=== PATIENT | female | born 1935 | race Caucasian/White ===

== ENCOUNTER 2016-04-21 20:10 | Emergency (ER) | payer OTHER, MEDICARE ==
[2016-04-21 20:21] VITALS: RESP 20; TEMP 97.4
--- NOTE | 2016-04-21 20:34 | PDOC ---
Upper Extremity Problem HPI - General Chief Complaint: Upper Extremity Problem/Injury Stated Complaint: Right Upper Arm Injury Date Seen by Provider: 04/21/16 Time Seen by Provider: 20:28 Source: POSITIVE: Patient, Spouse Exam Limitations: POSITIVE: No limitations Nurse's Notes Reviewed & Considered: Yes - History of Present Illness Initial Comments: Patient comes in today with right upper extremity pain. One week ago patient while using her walker. She hit her right inner upper arm on the handle resulting in significant bruising. She comes in now because of increasing pain and hard knot in her biceps. She denies any fever or chills or sweats, nausea vomiting or diarrhea, no hematuria or dysuria. Body Location Affected: REPORTS: Upper Extremity (R) Timing: REPORTS: Abrupt Duration: >1 week Severity: Moderate Quality: REPORTS: "Pain" Recent Injury: REPORTS: Yes Context of Injury: REPORTS: Fall, Direct Blow Location at Time of Onset: REPORTS: Home Modifying Factors: REPORTS: Movement, Rest Similar Symptoms Previously: No Recent Care Received: Denies Any Prior Injuries Related to Current Complaint?: No - Patient Home Medications Home Medications: Home Medications Naproxen Sodium [Aleve] 2 cap PO QAM cap 06/24/15 Cholecalciferol (Vitamin D3) [Vitamin D3] 1 cap PO QD cap 10/08/15 Gluc Kamara/MSM/Magnesium/Vit C [Glucosamine Complex-MSM Cap] 1 each PO DAILY cap 10/08/15 Vit A/C/E AC/Znox/Cupric Oxide [Eye Vitamin-Minerals Tablet] 1 each PO DAILY tab 10/08/15 Donepezil HCl [Aricept] 1 tab PO QHS #90 tab 10/24/15 Clobetasol Propionate 1 applic TOPICAL QHS #1 tube 11/06/15 Cyanocobalamin (Vitamin B-12) [Vitamin B12] 2,500 mcg PO DAILY tab 11/22/15 Vitamin B Complex 1 each PO QD cap 11/22/15 Lisinopril 1 tab ORAL QD #90 tab 12/12/15 - Patient Allergies Allergies/Adverse Reactions: Allergies Allergy/AdvReac Type Severity Reaction Status Date / Time alendronate sodium Allergy Intermediate NOT Verified 04/21/16 20:15 [From Fosamax] APPLICABLE diclofenac Allergy Intermediate NAUSEA Verified 04/21/16 20:15 doxycycline [Doxycycline] Allergy Intermediate RASH Verified 04/21/16 20:15 Akcuuqy-Bso-Dye Reductase Allergy Intermediate NOT Verified 04/21/16 20:15 Inhibitor APPLICABLE Past Medical History - heen HEENT History: Macular Degeneration, Cataracts Cardiovascular History: Hypertension Respiratory History: Denies History Gastrointestinal History: Denies History Genitourinary History: Denies History Endocrine History: Hypothyroidism Musculoskeletal History: Arthritis, Osteoporosis, Back Pain, Joint Pain, Osteoarthritis Prosthesis or Implant: Yes (BILAT KNEE/ RIGHT SHOULDER/LEFT HIP) Additional Musculoskeletal History: MULTIPLE BACK SX Neurological History: Dementia Blood Disorders: Denies History Psychiatric History: Depression, Anxiety Disorders History of Sexually Transmitted Diseases: No Female Reproductive History: Denies History Obstetrical History: Denies History Cancer History: Denies History In Past Year Been Physically Harmed or Verbally Threatened: No History of MDRO: No History of Other Communicable Diseases: No Tobacco Use: Never Smoker Alcohol Use: Rarely Substance Use Type: None Previous Surgical History: Yes Type / Date of Surgery: COLONOSCOPY/ HYST/ LEFT MID FOOT FUSION/ ELISEO FUNDOPLICATION/ THORACOLUMBAR FUSION/ TONSILLECTOMY/ BILATRAL TKA/ RIGHT TSA Anesthesia Reactions: No Malignant Hyperthermia: No Significant Family History: Heart disease, Hypertension ROS - Limitations ROS Limitations: No Limitations Constitution: REPORTS: Denies Symptoms Cardiovascular: REPORTS: Denies Cardiac Symptoms Respiratory: REPORTS: Denies Resp Symptoms Neurological: REPORTS: Denies Neuro Symptoms Gastrointestinal: REPORTS: Denies GI Symptoms Endocrine: REPORTS: Denies Symptoms Musculoskeletal: REPORTS: Other (Upper extremity bruising, swelling, and tenderness.) Genitourinary: REPORTS: Denies Symptoms Eyes: REPORTS: Denies Symptoms ENT: REPORTS: Denies Symptoms Skin: REPORTS: Denies Skin Symptoms Lympathic: REPORTS: Denies Lympathic Symptoms Immunologic: POSITIVE: Denies Symptoms Psychiatric: POSITIVE: Denies Psych Symptoms Upper Extremity Problem Exam - General Appearance General Appearance: POSITIVE: Alert, Cooperative, No Acute Distress - Upper Extremity Upper Extremity: POSITIVE: Normal ROM, Joints Normal, Tenderness (Right biceps) , Swelling Vascular: POSITIVE: No Vascular Compromise, Full Pulses - Skin Skin: POSITIVE: Other (Bruising right upper arm.) - Neuro / Psych Peripheral Neuro Exam: POSITIVE: Sensation Normal, Motor Normal Central Neuro Exam: POSITIVE: Oriented to Person, Oriented to Place, Oriented to Time - HEENT HEENT: POSITIVE: Head Inspection Nml, Eyes Inspection Nml, Ears Inspection Nml, Nose Inspection Nml, PERRL, EOMI - Neck/Back Neck / Back: POSITIVE: Normal Inspection - Respiratory / CVS Respiratory / CVS: POSITIVE: No Respiratory Distress, Breath Sounds Normal, Regular Rate & Rhythm, Heart Sounds Normal Peripheral Pulses: Radial (R): 2+, Radial (L): 2+ - Abdomen Abdomen: Soft: (All Quadrants), Normal Bowel Sounds: (All Quadrants), Denies Tenderness: (All Quadrants) Upper Ext Problem Progress - Results Reviewed by me Xrays/CTs/US Reviewed by me: Yes Discussed with Radiologist: No Lab Results Reviewed: Yes Lab Results:: Laboratory Results 04/21/16 Range/Units 20:41 WBC 6.47 (4.8-10.8) 10^3/uL RBC 4.80 (4.20-5.40) 10^6/uL Hgb 13.8 (12.0-16.0) g/dL Hct 41.6 (37.0-47.0) % MCV 86.7 (81-99) FL MCH 28.8 (27-31) PG MCHC 33.2 (33-37) g/dL RDW Std Deviation 46.5 (39-50) fL RDW Coeff of Malcolm 14.9 H (11.5-14.5) % Plt Count 324 (140-350) 10*3/uL MPV 8.5 (7.4-12.2) FL Immature Gran % (Auto) 0.3 (0-5) % Neut % (Auto) 55.7 (50-80) % Lymph % (Auto) 30.8 (10-50) % Bradley % (Auto) 9.6 (5-15) % Eos % (Auto) 3.1 (0-8) % Baso % (Auto) 0.5 (0-1) % Immature Gran # (Auto) 0.02 10*3/UL Neut # (Auto) 3.61 10*3/UL Lymph # (Auto) 1.99 10*3/uL Bradley # (Auto) 0.62 (0.3-0.8) 10*3/UL Eos # (Auto) 0.20 10*3/UL Baso # (Auto) 0.03 10*3/UL WBC Morphology Comment Normal morphology (NORM) Plt Morphology Comment Normal morphology (NORM) RBC Morph Comment Normal morphology (NORM) PT 10.7 (9.7-11.4) secs INR 1.04 (0.00-5.90) N/A - Patient's Progress Pain Medication Addressed: POSITIVE: Not Applicable Re-Examine Time:: 21:35 Status: POSITIVE: Improved - Consult Counseled: POSITIVE: Patient, Family, RE: Lab Results, RE: Radiology Results, RE : DX Patient Care Time - Estimated PCT Patient Care Time (In Minutes): 20 Vital Signs - Recent Vital Signs Vital Signs: Vital Signs (Last 8 hours) Temp Pulse Resp BP Pulse Ox 04/21/16 20:10 97.4 F 85 20 150/98 95 - VS Reviewed Vital Signs Reviewed: Yes Discharge Clinical Impression: Hematoma Discharge Disposition: Discharged to Home Condition: Stable Patient Instructions Given at Discharge: Contusion in Adults (ED)
[2016-04-21 20:46] LABS: BASOPHILS # (AUTO) 0.03 10*3/UL; BASOPHILS % (AUTO) 0.5 % (0-1); EOSINOPHILS % (AUTO) 3.1 % (0-8); HEMATOCRIT 41.6 % (37.0-47.0); HEMOGLOBIN 13.8 g/dL (12.0-16.0); IMM GRAN % (AUTO) 0.3 % (0-5); IMM GRAN# (AUTO) 0.02 10*3/UL; LYMPHOCYTES # (AUTO) 1.99 10*3/uL; LYMPHOCYTES % (AUTO) 30.8 % (10-50); MEAN CORPUSCULAR HEMOGLOBIN 28.8 PG (27-31); MEAN CORPUSCULAR HGB CONC 33.2 g/dL (33-37); MEAN PLATELET VOLUME 8.5 FL (7.4-12.2); MONOCYTES # (AUTO) 0.62 10*3/UL (0.3-0.8); MONOCYTES % (AUTO) 9.6 % (5-15); NEUTROPHILS # (AUTO) 3.61 10*3/UL; NEUTROPHILS % (AUTO) 55.7 % (50-80); RDW COEFFICIENT OF VARIATION 14.9 % (11.5-14.5); WHITE BLOOD COUNT 6.47 10^3/uL (4.8-10.8)
[2016-04-21 20:47] LABS: PLATELET MORPHOLOGY COMMENT NORMAL MORPHOLOGY (NORM)
[2016-04-21 20:53] LABS: PROTHROMBIN TIME 10.7 secs (9.7-11.4)
--- NOTE | 2016-04-21 21:46 | DI ---
HISTORY: Bleeding from right bicep. COMPARISON: None available. TECHNIQUE: Multiple grayscale and color Doppler sonographic images were obtained through the region of interest. FINDINGS: Examination demonstrates a large visible hematoma. Sonographic images reveal a heterogene ous encapsulated mass without any internal flow. This measures 5.1 x 4.0 x 2.6 cm within the intramu scular portion of the right bicep. IMPRESSION: 1. Large encapsulated heterogeneous solid mass in the right upper extremity is consistent with a larg e intramuscular hematoma. NOTIFICATION: The above findings were phoned to Ade Tenorio in the ER Department on 04/22/2016 at 12 :08 AM EST. NOTE: The interpreting Radiologist was not present at the time of ultrasound interrogation.
--- NOTE | 2016-04-22 20:00 | DI ---
RIGHT HUMERUS, 04/21/2016 8:25 PM: Clinical History: Injury. The patient fell. Pain. Previous Exam: None at this facility. 3 views of the right shoulder and 2 views of the right humerus are submitted. The shoulder exam was i ntradermally performed, but the patient was not charged for this exam. The patient is status post tot al right reverse shoulder replacement. The prosthetic device articulates normally. There is no fractu re of the humerus and there is no evidence of loosening of the prosthetic device. There is heterotopi c bone formation along the inferior margin of the anchor point for the metallic prosthesis in the sca pula. The visualized portions of the right lung show no infiltrate or mass. Readin. Status post total right reverse shoulder replacement. The prosthetic device articulates normally. 2. There is no evidence of a fracture of the humerus or of loosening of the prosthetic device.
== END 2016-04-21 21:40 | disposition home or self-care (01) ==
LOC: ER 20:10
DX: S40.021A Contusion of right upper arm, initial encounter (principal); W01.198A Fall on same level from slipping, tripping and stumbling with subsequent striking against other object, initial encounter
CPT/HCPCS: 73060; 76882; 85025; 85610; 99283

== ENCOUNTER → 2016-05-08 | Outpatient (CLI) | payer OTHER, MEDICARE | LOC: MMPC 09:00 | PROVIDERS: ATTEND Student in an Organized Health Care Education/Training Program | DX: H10.31 Unspecified acute conjunctivitis, right eye (principal) | CPT/HCPCS: 99212 ==

== ENCOUNTER 2017-12-13 09:55 | Inpatient (IN) ==
[2017-12-13 10:40] LABS: BASOPHILS # (AUTO) 0.02 10*3/UL; BASOPHILS % (AUTO) 0.1 % (0-1); EOSINOPHILS # (AUTO) 0.17 10*3/UL; EOSINOPHILS % (AUTO) 0.8 % (0-8); Hematocrit [HCT] 35.9 % (37.0-47.0); Hemoglobin [HGB] 11.7 g/dL (12.0-16.0); LYMPHOCYTES # (AUTO) 1.93 10*3/uL; MEAN CORPUSCULAR HEMOGLOBIN 27.7 PG (27-31); MEAN CORPUSCULAR HGB CONC 32.6 g/dL (33-37); MEAN CORPUSCULAR VOLUME 84.9 FL (81-99); MEAN PLATELET VOLUME 9.2 FL (7.4-12.2); MONOCYTES # (AUTO) 1.03 10*3/UL (0.3-0.8); MONOCYTES % (AUTO) 5.1 % (5-15); NEUTROPHILS # (AUTO) 16.85 10*3/UL; NEUTROPHILS % (AUTO) 83.6 % (50-80); RED BLOOD COUNT 4.23 10^6/uL (4.20-5.40)
[2017-12-13 10:48] LABS: BLOOD UREA NITROGEN 61 mg/dL (7-22)
[2017-12-13 11:05] LABS: PLATELET MORPHOLOGY COMMENT NORMAL MORPHOLOGY (NORM); RBC MORPHOLOGY COMMENT SEE COMMENTS (NORM); WBC MORPHOLOGY COMMENT NORMAL MORPHOLOGY (NORM)
[2017-12-13] MEDS ORDERED: Sodium Chloride 0.9% 500 ML PRIMARY IV ONE (11:37)
[2017-12-13] MEDS ORDERED: Sodium Chloride 0.9% 1,000 ML PRIMARY IV ONE (12:06)
--- NOTE | 2017-12-13 13:07 | DI ---
AP /LATERAL CHEST, 12/13/2017 11:24 AM : Clinical History: Chills/ rigor. Previous Exam: None at this facility. There is no acute soft tissue or bony abnormality. The patient is status post posterior fusions at th e thoracolumbar junction and status post right reverse shoulder replacement. There are multiple old c ompression fractures in the midthoracic spine. There is cardiomegaly with a prominent left ventricula r contour suggesting either a left ventricular aneurysm or severe hypertension or severe aortic insuf ficiency. Coronary artery calcifications are present in the LAD. Lungs are clear. Mediastinal structu res are normal. There are no pulmonary nodules. Readin. There is no acute infiltrate or effusion. 2. Cardiomegaly with prominence of the left ventricular contour. This prominence is either secondary to a left ventricular aneurysm, severe hypertension, or severe aortic insufficiency. Calcifications are present in the LAD. There is no CHF. 3. Status post multiple fusions in the thoracolumbar junction with multiple old osteoporotic chanel sugey fractures. Status post total reversed right shoulder replacement.
[2017-12-13] MEDS ORDERED: Ertapenem Inj 1 GM in Sodium Chloride 0.9% 100 ML IV ONE (13:49)
[2017-12-13] MEDS ORDERED: LIDOCAINE HCL 2 % 10 ML JELLY URO-JECT TOPICAL ONE ×2 (13:52→14:11)
[2017-12-13 14:11] LABS: BILIRUBIN,URINE SMALL (NEG); CLARITY,URINE CLEAR (CLEAR); COLOR,URINE YELLOW (Y); GLUCOSE, URINE (UA) NEGATIVE (NEG); OCCULT BLOOD,URINE NEGATIVE (NEG); PH,URINE 5.5 (5.0-8.5); PROTEIN,URINE 100 mg/dl (NEG); UROBILINOGEN,URINE 0.2 EU/dL (0.2)
[2017-12-13 14:19] LABS: BACTERIA,URINE RARE; RBC,URINE 0-1 /hpf; RENAL EPITHELIAL CELLS,URINE MODERATE; SQUAMOUS EPITHELIAL CELL,UR FEW; URINE CASTS MODERATE; URINE SAMPLE TYPE CATH SPECIMEN
[2017-12-13] MEDS ORDERED: ONDANSETRON 4 MG/2 ML VIAL IVP ONE (14:40)
[2017-12-13] MEDS ORDERED: ONDANSETRON 4 MG/2 ML VIAL ONE (14:43)
--- NOTE | 2017-12-13 15:15 | PDOC ---
HPI - History of Present Illness History of Present Illness: This very nice 82-year-old female presented to the ER with diarrhea which she had for 2 weeks as well as generalized weakness she states that she has a 5-6 a day. No vomiting but some nausea CT scan without contrast revealed no abnormalities in her abdomen and pelvis. Colonoscopy revealed some diverticula. No blood thinners and was mildly heme positive in the ER. Past Medical History Medical History: Dementia, hypertension Tobacco Use: Never Smoker In the Past 12 Months, Have Used or Abuse Any of the Following Substance: None Medication / Allergies Home Medications: Home Medications 3 Medication Instructions Recorded Confirmed Type Vitamin B Complex 1 ea PO QD cap 11/22/15 12/13/17 History cholecalciferol (vitamin D3) 1,000 1,000 unit PO QDAY #90 cap 08/27/17 12/13/17 Rx unit capsule escitalopram 5 mg tablet 5 mg PO QDAY #90 tab 08/27/17 12/13/17 Rx ibuprofen 200 mg tablet 200 mg PO QHS PRN tab 08/27/17 12/13/17 History lisinopril 40 mg tablet 40 mg PO QDAY #90 tab 08/27/17 12/13/17 Rx memantine 5 mg tablet 5 mg PO QDAY #30 tab 08/27/17 12/13/17 Rx vitamins A,C,I-hzcp-zcicce 14,320 1 cap PO DAILY 08/27/17 12/13/17 History unit-226 mg-200 unit capsule Allergies/Adverse Reactions: Allergies 3 Allergy/AdvReac Type Severity Reaction Status Date / Time alendronate sodium Allergy Intermediate NOT Verified 12/13/17 17:37 [From Fosamax] APPLICABLE diclofenac Allergy Intermediate NAUSEA Verified 12/13/17 17:37 doxycycline [Doxycycline] Allergy Intermediate RASH Verified 12/13/17 17:37 Fadquzg-Mti-Xjx Reductase Allergy Intermediate NOT Verified 12/13/17 17:37 Inhibitor APPLICABLE Review of Systems - Review of Systems All Systems: Reviewed & No Additional Complaints Except as Stated - Respiratory Respiratory: DENIES: Negative System Review, Cough, Sputum, Dyspnea At Rest, Dyspnea with Exertion, Pleuritic Pain, Hemoptysis, Wheezing, Other, See HPI - Cardiovascular Cardiovascular: DENIES: Negative System Review, Chest Pain, Edema, Syncope, Palpitations, Orthopnea, Paroxysmal Nocturnal Dyspnea, Other, See HPI - Gastrointestinal Gastrointestinal / Abdominal: REPORTS: Nausea, Diarrhea Exam - Vitals Vital Signs: Vital Signs Temperature 96 F Pulse Rate [Pulse Oximeter] 107 Respiratory Rate 18 Blood Pressure [Left Arm] 125/53 Pulse Ox 95 Oxygen Delivery Method Room Air Height 5 ft Weight 180 lb - General General Appearance: No Acute Distress, Mild Distress, Disheveled - Head Head Exam: Normal Inspection, Normocephalic, Atraumatic - Eye Eye Exam: POSITIVE: Normal Appearance, PERRL, EOMI, No Scleral Icterus - Respiratory Respiratory Exam: POSITIVE: Clear to Auscultation - Bilaterally, Breathing Non Labored, Normal To Percussion, Normal to Percussion and Palpation - Cardiovascular Cardiovascular Exam: POSITIVE: RRR, No Murmur, No Clicks, No Gallops, No Rubs, PMI Non-Displaced - GI/Abdominal GI/Abdominal Exam: POSITIVE: Normal Bowel Sounds, Non Distended, Soft, No Masses , No Hepatomegaly, No Splenomegaly, No Organomegaly Additional GI/Abdominal Exam Details: Mild tenderness to the right lower quadrant pain no guarding or rebound - Extremities Extremities Exam: POSITIVE: No Clubbing Present, No Edema Present Results - Labs CBC and BMP: 12/13/17 19:30 12/13/17 10:20 Assessment and Plan - Patient Problems (1) CAYDEN (acute kidney injury) Current Visit: Yes Status: Acute Code(s): N17.9 - Acute kidney failure, unspecified (2) Diarrhea Current Visit: Yes Status: Acute Code(s): R19.7 - Diarrhea, unspecified (3) Leukocytosis Current Visit: Yes Status: Acute Code(s): D72.829 - Elevated white blood cell count, unspecified Qualifiers: Leukocytosis type: unspecified Qualified Code(s): D72.829 - Elevated white blood cell count, unspecified (4) Weakness Current Visit: Yes Status: Acute Code(s): R53.1 - Weakness - Assessment / Plan Additional Assessment/Plan Details: #1 diarrhea 2 weeks duration etiology unknown stool cultures were sent C. difficile was negative patient received [address] abdomen and pelvis without contrast because of her renal insufficiency was unremarkable we will await for further studies so order a C-reactive protein and sedimentation rate likely Crohn's at this stage even though there is a by multiple. The literature CBC down to 17,000 tonight hemoglobin 10.7 hemodynamically stable #2 acute kidney injury most likely prerenal from the diabetes with the patient repeat labs
[2017-12-13] MEDS ORDERED: LIDOCAINE W/ SODIUM BICARB 0.5 ML SYR SUBD PRN (15:20)
--- NOTE | 2017-12-13 16:52 | PDOC ---
General Adult HPI - General Chief Complaint: GI Bleed / Rectal Pain Stated Complaint: passing blood rectally Date Seen by Provider: 12/13/17 Time Seen by Provider: 10:40 - History of Present Illness Initial Comment: This is a very nice 82-year-old woman who presented to the emergency department with chief complaint of having blood in her stool. After further questioning and pressing she actually has diarrhea now for couple days is feeling extremely weak wiped out also has some chills and rigors and in general is very weak and just doing poorly. She denies any fever per se or shortness of breath or dysuria or flank pain. She denies any vomiting But does have a little bit of nausea. She has had problems with GI bleeding in the past and recently had a colonoscopy that showed some diverticula and a polyp that was benign. She does not take any blood thinners. She does not take much for medications actually she is typically fairly robust and healthy. Have you received a tetanus shot in the past 10 years?: Yes - Patient Home Medications Home Medications: Home Medications Vitamin B Complex 1 ea PO QD cap 11/22/15 cholecalciferol (vitamin D3) 1,000 unit capsule 1,000 unit PO QDAY #90 cap 08/27 escitalopram 5 mg tablet 5 mg PO QDAY #90 tab 08/27/17 ibuprofen 200 mg tablet 200 mg PO QHS PRN tab 08/27/17 lisinopril 40 mg tablet 40 mg PO QDAY #90 tab 08/27/17 memantine 5 mg tablet 5 mg PO QDAY #30 tab 08/27/17 vitamins A,C,Y-tkqg-vyixgc 14,320 unit-226 mg-200 unit capsule 1 cap PO DAILY 08/27/17 - Patient Allergies Allergies/Adverse Reactions: Allergies 3 Allergy/AdvReac Type Severity Reaction Status Date / Time alendronate sodium Allergy Intermediate NOT Verified 12/13/17 10:07 [From Fosamax] APPLICABLE diclofenac Allergy Intermediate NAUSEA Verified 12/13/17 10:07 doxycycline [Doxycycline] Allergy Intermediate RASH Verified 12/13/17 10:07 Spktblp-Eyo-Xey Reductase Allergy Intermediate NOT Verified 12/13/17 10:07 Inhibitor APPLICABLE Past Medical History - heen HEENT History: Macular Degeneration, Cataracts Cardiovascular History: Hypertension Respiratory History: Denies History Gastrointestinal History: Other (please comment) Additional Gastrointestinal History: RECTAL BLEEDING/HEMORRHOID. DIARRHEA. DIVERTICULOSIS. COLON POLYP Genitourinary History: Incontinence Endocrine History: Hypothyroidism Musculoskeletal History: Arthritis, Osteoporosis, Back Pain, Joint Pain, Osteoarthritis Prosthesis or Implant: Yes (BILAT KNEE/ RIGHT SHOULDER/LEFT HIP/SPINAL FUSION) Additional Musculoskeletal History: CHRONIC NECK AND BACK PAIN. OSTEOMYELITIS OF ANKLE/FOOT. ACQUIRED HAMMER TOE. THORACIC SPINAL STENOSIS. OBESITY. RESTLESS LEGS Neurological History: Other (please comment) Additional Neurological History: MILD COGNITIVE IMPAIRMENT WITH MEMORY LOSS Blood Disorders: Denies History Psychiatric History: Depression, Anxiety Disorders History of Sexually Transmitted Diseases: No Female Reproductive History: Hysterectomy Cancer History: Denies History In Past Year Been Physically Harmed or Verbally Threatened: No History of MDRO: No History of Other Communicable Diseases: No Tobacco Use: Never Smoker Alcohol Use: Rarely In the Past 12 Months, Have Used or Abuse Any Substance: None Previous Surgical History: Yes Type / Date of Surgery: COLONOSCOPY/ HYST/ LEFT MID FOOT FUSION/ ELISEO FUNDOPLICATION/ THORACOLUMBAR FUSION/ TONSILLECTOMY/ BILATRAL TKA/ RIGHT TSA Anesthesia Reactions: No Malignant Hyperthermia: No Significant Family History: Heart disease, Hypertension Past Medical History Reviewed: Reviewed - No Changes ROS Cardiovascular: REPORTS: Denies Cardiac Symptoms Neurological: REPORTS: Denies Neuro Symptoms Endocrine: REPORTS: Denies Symptoms Eyes: REPORTS: Denies Symptoms General Adult Exam - General Appearance General Appearance: POSITIVE: Alert, Cooperative - HEENT HEENT: POSITIVE: Head Inspection Nml - Neck Neck: POSITIVE: Normal Inspection - Respiratory Respiratory: POSITIVE: No Respiratory Distress, Breath Sounds Normal - Cardiovascular Cardiovascular: POSITIVE: Regular Rate & Rhythm - Abdomen Additional Abdominal Details: Abdomen has some mild to moderate vague diffuse tenderness without rebound or guarding bowel tones are normal to hyperactive. - Rectal Rectal: POSITIVE: Heme Positive Stool, Other (Loose watery stool in the rectal vault) - Back Back: POSITIVE: Normal Inspection. NEGATIVE: CVA Tenderness - Skin Skin: POSITIVE: Normal Color, Warm - Extremities Additional Extremities Details: No significant lower extremity edema - Neurological / Psychological Neurological: POSITIVE: Affect Apporpriate, Oriented X3 General Adult Progress - Results Reviewed by me Xrays/CTs/US Reviewed by me: Yes Radiology Findings: Cardiomegaly otherwise benign Lab Results Reviewed by Me: Yes Lab Results:: Laboratory Results 3 12/13/17 12/13/17 12/13/17 10:20 10:20 10:20 WBC 20.17 H RBC 4.23 Hgb 11.7 L Hct 35.9 L MCV 84.9 MCH 27.7 MCHC 32.6 L RDW Std Deviation 50.0 RDW Coeff of Malcolm 16.3 H Plt Count 341 MPV 9.2 Immature Gran % (Auto) 0.8 Neut % (Auto) 83.6 H Lymph % (Auto) 9.[address] [place] % (Auto) 5.1 Eos % (Auto) 0.8 Baso % (Auto) 0.1 Immature Gran # (Auto) 0.17 Neut # (Auto) 16.85 Lymph # (Auto) 1.93 [place] # (Auto) 1.03 H Eos # (Auto) 0.17 Baso # (Auto) 0.02 WBC Morphology Comment Normal morphology Plt Morphology Comment Normal morphology RBC Morph Comment See comments Sodium 138 Potassium 4.3 Chloride 108 Carbon Dioxide 21 L Anion Gap 9 BUN 61 H Creatinine 1.9 H Estimated GFR Voice And Data Technician BUN/Creatinine Ratio 32.10 H Glucose 135 H Calculated Osmolality 304.0 H Lactic Acid Calcium 10.0 Total Bilirubin 0.5 AST 52 H ALT 30 Alkaline Phosphatase 111 Total Protein 7.2 Albumin 4.0 Globulin 3.2 Albumin/Globulin Ratio 1.20 L Ur Collection Type Urine Color Urine Clarity Urine pH Ur Specific [place] Urine Protein Urine Glucose (UA) Urine Ketones Urine Occult Blood Urine Nitrate Urine Bilirubin Urine Urobilinogen Ur Leukocyte Esterase Urine RBC Urine WBC Ur Squamous Epith Cells Ur Renal Epithelial Cell Urine Crystals Urine Bacteria Urine Casts Urine Mucus Urine Trichomonas Urine Yeast Ur Culture Indicated? Blood Type O POSITIVE Antibody Screen Negative 3 12/13/17 12/13/17 11:27 14:00 WBC RBC Hgb Hct MCV MCH MCHC RDW Std Deviation RDW Coeff of Malcolm Plt Count MPV Immature Gran % (Auto) Neut % (Auto) Lymph % (Auto) [place] % (Auto) Eos % (Auto) Baso % (Auto) Immature Gran # (Auto) Neut # (Auto) Lymph # (Auto) [place] # (Auto) Eos # (Auto) Baso # (Auto) WBC Morphology Comment Plt Morphology Comment RBC Morph Comment Sodium Potassium Chloride Carbon Dioxide Anion Gap BUN Creatinine Estimated GFR BUN/Creatinine Ratio Glucose Calculated Osmolality Lactic Acid 1.9 Calcium Total Bilirubin AST ALT Alkaline Phosphatase Total Protein Albumin Globulin Albumin/Globulin Ratio Ur Collection Type Cath specimen Urine Color Yellow Urine Clarity Clear Urine pH 5.5 Ur Specific [place] 1.020 Urine Protein 100 A Urine Glucose (UA) Negative Urine Ketones Trace A Urine Occult Blood Negative Urine Nitrate Negative Urine Bilirubin Small Urine Urobilinogen 0.2 Ur Leukocyte Esterase Small Urine RBC 0-1 Urine WBC 2-5 Ur Squamous Epith Cells Few Ur Renal Epithelial Cell Moderate Urine Crystals None Urine Bacteria Rare Urine Casts Moderate Urine Mucus Rare Urine Trichomonas None Urine Yeast None Ur Culture Indicated? Culture not set Blood Type Antibody Screen CBC and BMP: 12/13/17 10:20 12/13/17 10:20 - Patient's Progress MDM / ED Course: This very nice elderly woman has a significant acute kidney injury a significant leukocytosis likely colitis likely secondary to an infectious cause and is admitted to the hospital as an inpatient. I appreciate the discussion and acceptance of this patient by the hospitalist. She was given a dose of Invanz prior to leaving the emergency department we attempted to place a Galarza catheter but this was difficult nursing he is still working on it. There is a UA pending as well. She had a negative C. difficile and stool cultures are pending as well. Patient Care Time - Estimated PCT Patient Care Time (In Minutes): 50 Vital Signs - Recent Vital Signs Vital Signs: Vital Signs (Last 8 hours) Temp Pulse Resp BP Pulse Ox 12/13/17 10:36 96 F L 107 H 18 125/53 95 - VS Reviewed Vital Signs Reviewed: Yes Discharge Clinical Impression: CAYDEN (acute kidney injury), Colitis, Weakness, Diarrhea Leukocytosis Qualifiers: Leukocytosis type: unspecified Qualified Code(s): D72.829 - Elevated white blood cell count, unspecified Discharge Disposition: Admit to Inpatient Condition: Fair Date Decision to Admit to Inpatient: 12/13/17 Time Decision to Admit to Inpatient: 12:00
[2017-12-13] MEDS: Sodium Chloride 0.9% 1,000 ML PRIMARY IV SCH (17:23)
--- NOTE | 2017-12-13 17:35 | DI ---
CT ABDOMEN SCAN WITHOUT IV CONTRAST, 12/13/2017 4:07 PM : Clinical History: Diarrhea. Previous Exam: 03/08/2017. Scans are performed from the lower lung bases through the liver and kidneys without IV contrast. Sagi ttal and coronal reformatted images are generated. No oral or rectal contrast was ordered. The lung bases are clear. Calcifications are present in the right coronary artery. This patient proba wayne has dense calcifications in the mitral valve annulus. The liver is normal. The gallbladder is antonio ssly normal. Both adrenal glands and the pancreas are normal. The spleen is normal in overall appeara nce but does have punctate calcifications indicating patient probably has had prior exposure to eithe r TB or histoplasmosis. Both kidneys are normal in size, shape, and position. Bilateral cortical scott l cysts are present. There is no hydronephrosis or hydroureter. No right renal or ureteral calculi ar e present. Small punctate calcifications are present in lower pole calyces of the left kidney consist ent with nonobstructing 3-4 mm calculi. The left ureter is normal. There are no abnormal retrocrural or periaortic nodes. No ascites is present. READIN. Small 3-4 mm nonobstructing calculi are present in the lower pole calyces of the left kidney. Bot h ureters and the right kidney are normal. 2. The remainder of the examination is normal. Calcifications in the spleen are consistent with prev ious exposure to either TB or histoplasmosis. 3. Coronary artery disease manifested by calcifications in the right coronary artery. CT PELVIS SCAN WITHOUT IV CONTRAST, 12/13/2017 4:07 PM : Clinical History: See above. Previous Exam: 03/08/2017. Scans are performed from the inferior margin of the liver and kidneys to the symphysis pubis without IV contrast. The patient has had posterior fusions between T10 and S1 with laminectomies from T12 through L5. Ther e is a low-density fusiform shaped structure posterior to the spine in the subcutaneous fat over the midline incision for the spine surgery. This traverses the distance between T11 and S1 and measures a pproximately 60 x 60 x 150 mm. It is consistent with either a postoperative seroma or a postoperative pseudomeningocele. Scans through the lower abdomen and pelvis show no masses or abnormal fluid colle ctions. There is no adenopathy. The appendix is not visualized but there is no inflammatory mass eith er in the cecal tip or in the right lower quadrant. The small bowel, terminal ileum, and ileocecal va lve are normal. The colon is decompressed but normal. There are no hernias. The patient is status pos t hysterectomy and bilateral salpingo-oophorectomy. READIN. Normal CT pelvis scan without IV contrast. 2. Status post laminectomies from T12-L5 with posterior fusions between T10 and S1. There is a fusif orm low density area corresponding to the surgical incision for the back surgery consistent with a ps eudomeningocele or postoperative seroma.
[2017-12-13 19:35] LABS: Hematocrit [HCT] 31.6 % (37.0-47.0); Hemoglobin [HGB] 10.4 g/dL (12.0-16.0); MEAN CORPUSCULAR HEMOGLOBIN 27.7 PG (27-31); MEAN CORPUSCULAR HGB CONC 32.9 g/dL (33-37); MEAN PLATELET VOLUME 8.7 FL (7.4-12.2); RED BLOOD COUNT 3.76 10^6/uL (4.20-5.40)
[2017-12-14] MEDS: Sodium Chloride 0.9% 1,000 ML PRIMARY IV SCH ×3 (01:42→18:44)
[2017-12-14 05:02] LABS: BASOPHILS # (AUTO) 0.01 10*3/UL; BASOPHILS % (AUTO) 0.1 % (0-1); EOSINOPHILS # (AUTO) 0.02 10*3/UL; EOSINOPHILS % (AUTO) 0.2 % (0-8); Hematocrit [HCT] 29.6 % (37.0-47.0); Hemoglobin [HGB] 9.6 g/dL (12.0-16.0); LYMPHOCYTES # (AUTO) 1.16 10*3/uL; MEAN CORPUSCULAR HEMOGLOBIN 27.6 PG (27-31); MEAN CORPUSCULAR HGB CONC 32.4 g/dL (33-37); MEAN CORPUSCULAR VOLUME 85.1 FL (81-99); MEAN PLATELET VOLUME 9.7 FL (7.4-12.2); MONOCYTES # (AUTO) 0.78 10*3/UL (0.3-0.8); MONOCYTES % (AUTO) 5.9 % (5-15); NEUTROPHILS # (AUTO) 11.21 10*3/UL; NEUTROPHILS % (AUTO) 84.8 % (50-80); RED BLOOD COUNT 3.48 10^6/uL (4.20-5.40)
[2017-12-14 05:05] LABS: BLOOD UREA NITROGEN 58 mg/dL (7-22); BUN/CREATININE RATIO 44.61 (6-20)
[2017-12-14 05:12] LABS: PLATELET MORPHOLOGY COMMENT NORMAL MORPHOLOGY (NORM); RBC MORPHOLOGY COMMENT NORMAL MORPHOLOGY (NORM); WBC MORPHOLOGY COMMENT NORMAL MORPHOLOGY (NORM)
[2017-12-14 05:37] LABS: Erythrocyte Sediment Rate 18 MM/HR (0-20)
[2017-12-14] MEDS ORDERED: MEMANTINE HCL 5 MG PO SCH (09:00)
[2017-12-14] MEDS: ESCITALOPRAM 10 MG TABLET PO SCH (09:06)
[2017-12-14] MEDS: MEMANTINE 10 MG TABLET PO SCH (09:06)
[2017-12-14] MEDS ORDERED: PANTOPRAZOLE IV 40 MG VIAL ONE ×2 (09:14→21:13)
[2017-12-14] MEDS: Pantoprazole Inj 40 MG in Normal Saline Flush 10 ML IVP SCH ×2 (09:16→21:13)
--- NOTE | 2017-12-14 11:19 | PDOC(PROG) ---
Interval History: Patient feels much better she said her diarrhea has basically subsided would like to go home. No nausea no vomiting diagnosed advanced today Objective : Data - Labs CBC and BMP: 12/14/17 04:06 12/14/17 04:06 Objective : Exam - General General Appearance: Cooperative - Respiratory Respiratory Exam: Clear to Auscultation - Bilaterally, Breathing Non Labored, Normal To Percussion, Normal to Percussion and Palpation - Cardiovascular Cardiovascular Exam: RRR, No Murmur, No Clicks, No Gallops, No Rubs, PMI Non- Displaced - GI/Abdominal GI/Abdominal Exam: Normal Bowel Sounds, Non Tender, Non Distended, Soft, No Masses, No Hepatomegaly, No Splenomegaly, No Organomegaly - Extremities Extremities Exam: No Clubbing Present, No Edema Present, No Cyanosis Present Assessment and Plan - Patient Problems (1) CAYDEN (acute kidney injury) Current Visit: Yes Status: Acute Comment: Improving with hydration Code(s): N17.9 - Acute kidney failure, unspecified (2) Diarrhea Current Visit: Yes Status: Acute Comment: Improved resolved I have no stool cultures are back yet I did talk to Dr. Clarke infectious disease at this point we will hold off on all antibiotics and see how the patient does most likely the with colonoscopy as outpatient in this age group most likely ischemic colitis continue monitoring H&H patient had some heme positive stools she also states that she's been taking extra Aleve lately she is on Protonix IV twice a day Code(s): R19.7 - Diarrhea, unspecified (3) Leukocytosis Current Visit: Yes Status: Acute Code(s): D72.829 - Elevated white blood cell count, unspecified Qualifiers: Leukocytosis type: unspecified Qualified Code(s): D72.829 - Elevated white blood cell count, unspecified (4) Weakness Current Visit: Yes Status: Acute Code(s): R53.1 - Weakness
[2017-12-14] MEDS ORDERED: Sodium Chloride 0.9% vial 20 ML ONE (16:30)
[2017-12-14] MEDS ORDERED: BUPivacaine Liposome/PF (Exparel) Inj 20ml vial INFIL ONE (16:30)
[2017-12-15] MEDS: Sodium Chloride 0.9% 1,000 ML PRIMARY IV SCH ×2 (04:29→09:09)
[2017-12-15 07:17] VITALS: BP 138/54; RESP 18; TEMP 98.4; O2SAT 94
[2017-12-15 08:55] LABS: BASOPHILS # (AUTO) 0.02 10*3/UL; BASOPHILS % (AUTO) 0.1 % (0-1); EOSINOPHILS # (AUTO) 0.11 10*3/UL; EOSINOPHILS % (AUTO) 0.7 % (0-8); Hematocrit [HCT] 26.6 % (37.0-47.0); Hemoglobin [HGB] 8.5 g/dL (12.0-16.0); LYMPHOCYTES # (AUTO) 1.61 10*3/uL; MEAN CORPUSCULAR HEMOGLOBIN 27.8 PG (27-31); MEAN CORPUSCULAR VOLUME 86.9 FL (81-99); MONOCYTES # (AUTO) 0.78 10*3/UL (0.3-0.8); MONOCYTES % (AUTO) 5.1 % (5-15); NEUTROPHILS # (AUTO) 12.77 10*3/UL; NEUTROPHILS % (AUTO) 83.4 % (50-80); RED BLOOD COUNT 3.06 10^6/uL (4.20-5.40)
[2017-12-15] MEDS: ESCITALOPRAM 10 MG TABLET PO SCH (09:15)
[2017-12-15] MEDS: MEMANTINE 10 MG TABLET PO SCH (09:15)
[2017-12-15 09:20] LABS: PLATELET MORPHOLOGY COMMENT NORMAL MORPHOLOGY (NORM); WBC MORPHOLOGY COMMENT NORMAL MORPHOLOGY (NORM)
[2017-12-15 09:21] LABS: RBC MORPHOLOGY COMMENT SEE COMMENTS (NORM)
[2017-12-15 09:26] LABS: BLOOD UREA NITROGEN 29 mg/dL (7-22); BUN/CREATININE RATIO 41.42 (6-20); SERUM ALBUMIN 2.5 g/dL (3.5-4.8)
[2017-12-15] MEDS: Pantoprazole Inj 40 MG in Normal Saline Flush 10 ML IVP SCH (10:38)
--- NOTE | 2017-12-15 11:26 | PDOC(PROG) ---
Interval History: Patient has no complaints would like to be discharged home. Diarrhea is resolved she had one loose stool this morning but it was semisolid none yesterday no blood no black stools. No nausea no vomiting being 100% meals regular diet Objective : Data - Labs CBC and BMP: 12/15/17 08:47 12/15/17 08:47 Objective : Exam - Respiratory Respiratory Exam: Clear to Auscultation - Bilaterally, Breathing Non Labored, Normal To Percussion, Normal to Percussion and Palpation - Cardiovascular Cardiovascular Exam: RRR, No Murmur, No Clicks, No Gallops, No Rubs, PMI Non- Displaced - GI/Abdominal GI/Abdominal Exam: Normal Bowel Sounds, Non Tender, Non Distended, Soft, No Masses, No Hepatomegaly, No Splenomegaly, No Organomegaly Assessment and Plan - Patient Problems (1) CAYDEN (acute kidney injury) Current Visit: Yes Status: Acute Comment: Resolved most likely prerenal secondary to dehydration from diarrhea Code(s): N17.9 - Acute kidney failure, unspecified (2) Diarrhea Current Visit: Yes Status: Acute Comment: Resolved most likely is at this point cultures are pending ischemic colitis in the differential improved with hydration. Patient has been taken some extra Aleve as well at home I did consult Dr. Aravind Young for his input on whether this patient needs to EGD or colonoscopy or both as an inpatient or an outpatient he will see the patient later today Code(s): R19.7 - Diarrhea, unspecified (3) Leukocytosis Current Visit: Yes Status: Acute Comment: Slowly improving Code(s): D72.829 - Elevated white blood cell count, unspecified Qualifiers: Leukocytosis type: unspecified Qualified Code(s): D72.829 - Elevated white blood cell count, unspecified (4) Weakness Current Visit: Yes Status: Acute Comment: Improved Code(s): R53.1 - Weakness
[2017-12-15] MEDS ORDERED: PANTOPRAZOLE 40 MG TABLET PO SCH (11:45)
[2017-12-15] MEDS ORDERED: FERROUS GLUCONATE 324 MG TABLET PO SCH (12:30)
[2017-12-15] MEDS ORDERED: FOLIC ACID 1 MG TABLET PO SCH (12:30)
[2017-12-15] MEDS ORDERED: CYANOCOBALAMIN (VITAMIN B-12) 1,000 MCG TABLET.ER PO SCH (12:30)
--- NOTE | 2017-12-15 12:36 | DCSUMMARY ---
Hospitalization Summary Hospital Course: Final Discharge Diagnosis: Current Visit Problems Problem Status Onset Code CAYDEN (acute kidney injury) Acute N17.9 Colitis Acute K52.9 Leukocytosis Acute D72.829 Weakness Acute R53.1 Diarrhea Acute R19.7 Diagnostic Data, Laboratory Data, and Procedures of Signifigance: Laboratory Results 12/15/17 12/15/17 Range/Units 08:47 08:47 WBC 15.32 H (4.8-10.8) 10^3/uL RBC 3.06 L (4.20-5.40) 10^6/uL Hgb 8.5 L (12.0-16.0) g/dL Hct 26.6 L (37.0-47.0) % MCV 86.9 (81-99) FL MCH 27.8 (27-31) PG MCHC 32.0 L (33-37) g/dL RDW Std Deviation 51.4 H (39-50) fL RDW Coeff of Malcolm 16.6 H (11.5-14.5) % Plt Count 275 (140-350) 10*3/uL MPV 9.0 (7.4-12.2) FL Immature Gran % (Auto) 0.2 (0-5) % Neut % (Auto) 83.4 H (50-80) % Lymph % (Auto) 10.5 (10-50) % [place] % (Auto) 5.1 (5-15) % Eos % (Auto) 0.7 (0-8) % Baso % (Auto) 0.1 (0-1) % Immature Gran # (Auto) 0.03 10*3/UL Neut # (Auto) 12.77 10*3/UL Lymph # (Auto) 1.61 10*3/uL [place] # (Auto) 0.78 (0.3-0.8) 10*3/UL Eos # (Auto) 0.11 10*3/UL Baso # (Auto) 0.02 10*3/UL WBC Morphology Comment Normal morphology (NORM) Plt Morphology Comment Normal morphology (NORM) RBC Morph Comment See comments (NORM) Sodium 139 (135-145) meq/L Potassium 4.4 (3.8-5.2) meq/L Chloride 118 H (98-112) meq/L Carbon Dioxide 21 L (23-33) meq/L Anion Gap 0 L (5-20) BUN 29 H (7-22) mg/dL Creatinine 0.7 (0.50-1.20) mg/dL BUN/Creatinine Ratio 41.42 H (6-20) Glucose 83 (78-110) mg/dL Calculated Osmolality 292.0 (267-292) mOsm/kg Calcium 9.3 (8.7-10.7) mg/dL Total Bilirubin 0.5 (0.3-1.2) mg/dL AST 21 (8-39) IU/L ALT 28 (9-52) IU/L Alkaline Phosphatase 77 (38-126) IU/L Total Protein 4.9 L (6.1-8.0) g/dL Albumin 2.5 L (3.5-4.8) g/dL Globulin 2.4 L (2.50-4.10) g/dL Albumin/Globulin Ratio 1.00 L (1.3-2.0) mg/g History and Physical pertinent to Admission: Course of Hospitalization: Is a very nice 82-year-old female who comes into the hospital with a two-week history of diarrhea feeling very weak and tired. Also had the acute kidney injury and dehydration. Was admitted for further evaluation and treatment of her diarrhea. She received 1 dose of Invanz in the ER. CT scan abdomen and pelvis no contrast revealed no acute findings that could justify the diarrhea. Patient was rehydrated aggressively in the hospital her ibuprofen and ANDRA inhibitor were held. BUN and creatinine improved over the next few days normalizing. Most likely prerenal and dehydration patient had tolerated regular meals her diarrhea resolved no bloody stools no nausea no vomiting no abdominal pain. She has been insisting on going home. I did talk with Dr. Young today general surgery. The question was if she needed scoped while here in the hospital or needed to wait as an outpatient he did call me back and over the phone reviewed the patient's labs and no need for scoping in house she can be discharged home and follow-up appointment once all the cultures are back and also there is a higher risk the scope prematurely. I did tell the patient this and she is very happy and agrees. Her hemoglobin dropped to 8.5 mL hemodynamically stable I will hold off on her ANDRA inhibitor. She will follow- up with Dr. kodak Mohr tomorrow morning at the [facility] since looking through old records she is to 1 and that prescription to her in the past. Also the wanted me to call the granddaughter is her [employer] in [place] I did call her but there was no answer I did tell the patient that her granddaughter to call me any time and I would be happy to talk to her. C. difficile was negative On the date of discharge, the patient was examined: Gen.: No acute distress, alert, nontoxic Heart: Regular rate and rhythm, no murmurs, clicks, gallops, or rubs Lungs: Clear to auscultation bilaterally, breathing is nonlabored Abdomen/GI: Normal tones on auscultation, soft, nontender, nondistended Musculoskeletal/extremities: No clubbing, cyanosis, or edema Vitals reviewed and are listed below Vital Signs (24 hrs) Temp Pulse Resp BP BP Pulse Ox 12/15/17 07:16 98.4 F 74 18 138/54 94 12/15/17 07:00 20 12/15/17 04:45 96.9 F 82 24 145/52 91 12/15/17 00:16 97.2 F 77 24 123/48 94 12/14/17 20:03 97.1 F 92 20 124/44 93 12/14/17 16:11 98.9 F 81 18 115/47 93 Assessment and Plan: 1. As per discharge assessments above 2. Disposition: Home follow-up with Dr. kodak Mohr in a.m. 3. Condition on discharge, stable and improved. 4. Diet: regular diet 5. Activities: resume normal activities 6. Follow-Up: 1. PCP 2. 7. Medications at the Time of Discharge: 8. Time, care, counseling and coordination of care for this discharge is greater than 30 minutes. Exam - Vitals Vital Signs: Vital Signs Temperature 98.4 F Temperature Source Temporal Artery Scan Pulse Rate [Left Radial] 88 Pulse Rate [Pulse Oximeter] 74 Respiratory Rate 18 Blood Pressure [Right Arm] 138/54 Blood Pressure [Left Arm] 124/44 Pulse Ox 94 Oxygen Flow Rate 1 Oxygen Delivery Method Room Air Height 5 ft Weight 165 lb 9.6 oz Patient Problems - Patient Problem List (1) CAYDEN (acute kidney injury) Current Visit: Yes Status: Acute Code(s): N17.9 - Acute kidney failure, unspecified Category: Medical (2) Diarrhea Current Visit: Yes Status: Acute Code(s): R19.7 - Diarrhea, unspecified Category: Medical (3) Leukocytosis Current Visit: Yes Status: Acute Code(s): D72.829 - Elevated white blood cell count, unspecified Qualifiers: Leukocytosis type: unspecified Qualified Code(s): D72.829 - Elevated white blood cell count, unspecified Category: Medical (4) Weakness Current Visit: Yes Status: Acute Code(s): R53.1 - Weakness Category: Medical
== END 2017-12-15 14:00 | disposition home or self-care (01) | DRG 641 ==
LOC: ER 09:55 → MED/SURG 14:08
PROVIDERS: ADMIT Internal Medicine; ATTEND Internal Medicine